=== PATIENT | male | born 1975 | race Caucasian/White ===

== ENCOUNTER 2019-06-22 12:31 | Outpatient (CLI) | payer OTHER, MEDICARE ==
[2019-06-22] VITALS (21 sets, daily range): BP systolic 93–129; BP diastolic 62–89
== END 2019-06-22 23:59 | disposition home or self-care (01) ==
LOC: CARD DIAG 12:31
PROVIDERS: ATTEND Internal Medicine Cardiovascular Disease
DX: R42 Dizziness and giddiness (principal); Z72.0 Tobacco use
CPT/HCPCS: 93660

== ENCOUNTER 2021-05-25 09:13 | Emergency (ER) | payer MEDICARE, OTHER ==
[~2021-05-25] VITALS: Ht 182.9 cm; Wt 56.8 kg
[2021-05-25 11:00] VITALS: BP 97/63
[2021-05-28] MEDS ORDERED: SODI650T29 PO (20:37)
[2021-05-28] MEDS ORDERED: FLO0.4C PO (20:37)
[2021-05-28] MEDS ORDERED: TACR1TAB PO (20:37)
[2021-05-28] MEDS ORDERED: MYCO500T5 PO (20:37)
== END 2021-05-25 12:30 | disposition home or self-care (01) ==
LOC: ER 09:14
DX: U07.1 COVID-19 (principal); R05 Cough; R06.02 Shortness of breath
CPT/HCPCS: 87635; 99283; C9803